=== PATIENT | male | born 1960 | race African-American/Black ===

== ENCOUNTER 2023-07-07 22:04 | Emergency (ER) | payer MEDICARE, MEDICAID ==
[~2023-07-07] VITALS: Ht 165.1 cm; Wt 59.0 kg
[~2023-07-07 22:04] MED LIST: ALBU6.7H3 INH; AMLO10TA80 MT; BRIM10DR2 EACHEYE; CHOL100034; DIVA125T31; DOCU240C; LATA2.5D14 EACHEYE; LEVO-65 MT; LEVO25TA7; LORA10TA7 MT; LORA2TAB95; MULT-1146 MT; NETA2.5D EACHEYE; OXCA300T4; OXCA600T20 PO; SIMV-43; VALE150C PO; ZOLP5TAB8 PO
[2023-07-07 22:20] VITALS: O2SAT 98
[2023-07-08] MEDS ORDERED: [UNRECOGNIZED DRUG - CODE] MM (02:06)
[2023-07-08 02:19] VITALS: BP 149/67; PULSE 66; RESP 20; TEMP 98.9
== END 2023-07-08 02:21 | disposition home or self-care (01) ==
LOC: ER 22:04
DX: K05.10 Chronic gingivitis, plaque induced (principal); I10 Essential (primary) hypertension; R56.9 Unspecified convulsions; E03.9 Hypothyroidism, unspecified; Z79.899 Other long term (current) drug therapy
CPT/HCPCS: 99281